=== PATIENT | female | born 1955 | race African-American/Black ===

== ENCOUNTER 2017-10-31 12:41 | Emergency (ER) | payer MEDICARE, MEDICAID ==
[2017-10-31 13:36] LABS: Hemoglobin 10.6 g/dL (12.0-16.0); Mean Corpuscular HGB CONC 34.2 g/dL (32.0-36.0); Mean Corpuscular Hemoglobin 30.7 pg (27.0-31.0); Mean Platelet Volume 8.4 fL (7.4-10.4); Platelet Count 266 thou/uL (130-400); RBC Distribution Width 12.6 % (11.5-14.5); Red Blood Cell (RBC) Count 3.46 mill/uL (4.20-5.40); White Blood Cell (WBC) Count 17.8 thou/uL (4.8-10.8)
[2017-10-31 13:53] LABS: ALT (SGPT) 12 U/L (8-55); AST (SGOT) 8 U/L (5-34); Albumin 3.8 g/dL (3.4-4.8); Alkaline Phosphatase 127 U/L (40-150); Anion Gap 23 mmol/L (10-20); BUN (Urea Nitrogen) 15 mg/dL (9.8-20.1); Bilirubin, Total 0.5 mg/dL (0.2-1.2); CK (CPK) 39 U/L (29-168); Calc. Creatinine Clearance 0 mL/min (70-130); Calcium 9.6 mg/dL (7.8-10.44); Carbon Dioxide 20 mmol/L (23-31); Chloride 97 mmol/L (98-107); Estimated GFR-MDRD 47; Glucose 416 mg/dL (80-115); Lipase 25 U/L (8-78); Potassium 3.6 mmol/L (3.5-5.1); Protein, Total 7.8 g/dL (6.0-8.3); Sodium 136 mmol/L (136-145)
[2017-10-31 13:55] LABS: Band 6 % (5-11); Lymphocytes 16 % (21-51); MDiff Complete? YES; Monocytes 2 % (0-10); Neutrophil 76 % (42-75); PLT Morphology Comment Appears Adequate; Polychromasia SLIGHT = 2-3 cells (100X) (0-2/hpf)
[2017-10-31 13:57] LABS: CKMB 0.3 ng/mL (0-6.6); Troponin I Less than 0.010 ng/mL (< 0.028)
[2017-10-31] MEDS ORDERED: Acetaminophen 325 MG TAB ONE (14:52)
[2017-10-31] MEDS ORDERED: Ketorolac Tromethamine 30 MG/ML VIAL ONE (14:52)
--- NOTE | 2017-10-31 15:20 | RAD ---
PORTABLE UPRIGHT FRONTAL CHEST RADIOGRAPH: DATE: 10/31/17. COMPARISON: 06/25/15. HISTORY: Leg pain, leg gave out. FINDINGS: No pneumothorax or pleural fluid. No focal consolidation or alveolar edema. Mild pulmonary vascular prominence. IMPRESSION: No focal consolidation or alveolar edema. POS: [facility]
--- NOTE | 2017-10-31 15:23 | RAD ---
TWO VIEWS OF THE RIGHT HIP: DATE: 10/31/17. COMPARISON: 11/12/15. HISTORY: Hip pain, hip gave out, no history of fall. FINDINGS: There is severe degenerative change involving the right hip with prominent superior joint space narro wing as well as prominent lateral osteophyte formation involving the acetabular roof in the femoral h ead. There is also degenerative flattening of the femoral head and subchondral cystic change of the femoral head and the acetabular roof. No displaced fracture or evidence of dislocation is seen. The re has been no significant interval change when compared to the 11/12/15 exam. IMPRESSION: Severe stable degenerative joint disease involving the right hip. POS: [facility]
== END 2017-10-31 16:50 | disposition home or self-care (01) ==
LOC: ERS 12:41
DX: M16.11 Unilateral primary osteoarthritis, right hip (principal); E11.9 Type 2 diabetes mellitus without complications; I10 Essential (primary) hypertension; I25.2 Old myocardial infarction; Z79.899 Other long term (current) drug therapy; Z79.84 Long term (current) use of oral hypoglycemic drugs
CPT/HCPCS: 36415; 71045; 80053; 82553; 83690; 84484; 85025; 87040; 93005; 94760; 96361; 96374; J1885

== ENCOUNTER 2017-11-12 13:18 | Outpatient (CLI) | payer MEDICARE, OTHER | END 2017-11-12 13:19 | disposition home or self-care (01) | LOC: BICMAMMO 13:18 | PROVIDERS: ATTEND Orthopaedic Surgery | DX: Z12.31 Encounter for screening mammogram for malignant neoplasm of breast (principal); R92.1 Mammographic calcification found on diagnostic imaging of breast | CPT/HCPCS: 77063; 77067 ==